=== PATIENT | male | born 1985 | race Caucasian/White ===

== ENCOUNTER 2017-02-03 13:53 | Emergency (ER) | payer SELFPAY ==
[2017-02-03 14:31] LABS: APPEARANCE HAZY (CLEAR); BACTERIA FEW /hpf (NONE SEEN); BILIRUBIN NEGATIVE (NEGATIVE); COLOR DK YELLOW (YELLOW); EPITHELIAL CELLS 0-5 /hpf (0-5); GLUCOSE NEGATIVE (NEGATIVE); KETONE NEGATIVE (NEGATIVE); LEUKOCYTE ESTERASE TRACE (NEGATIVE); MUCUS <1+ /lpf (NONE SEEN); NITRITE NEGATIVE (NEGATIVE); PROTEIN NEGATIVE (NEGATIVE); SPECIFIC GRAVITY 1.015 (1.005-1.020); WHITE CELLS - URINE OCC /hpf (0-5)
[2017-02-03 14:31] LABS: BASOPHILS 0.4 % (0-2); EOSINOPHILS 1.5 % (0-7); HEMATOCRIT 48.9 % (42.0-54.0); HEMOGLOBIN 17.9 g/dL (13.5-17.5); IMMATURE GRANULOCYTES 0.1 % (0-5); LYMPHOCYTES 22.4 % (15-50); MCH 32.7 pg (26.0-34.0); MCHC 36.6 g/dL (31.0-37.0); MCV 89.4 fL (80.0-100.0); MEAN PLATELET VOLUME 10.9 fL (7.4-10.4); MONOCYTES 6.1 % (2-11); NEUTROPHILS 69.5 % (40-80); PLATELET COUNT 281 10x3/uL (130-400); RBC 5.47 10x6/uL (4.20-6.10); RDW 12.4 % (11.5-14.5); WBC 12.1 10x3/uL (4.8-10.8)
[2017-02-03 14:38] LABS: ALBUMIN 4.3 g/dL (3.4-5.0); ALKALINE PHOSPHATASE 66 U/L (46-116); ALT (SGPT) 28 U/L (10-68); AMYLASE - SERUM 52 U/L (25-115); BILIRUBIN - TOTAL 2.31 mg/dL (0.2-1.3); CALC OSMOLALITY 272 mosm/kg (275-300); CALCIUM 10.1 mg/dL (8.5-10.1); CARBON DIOXIDE 22.7 mmol/L (21.0-32.0); CHLORIDE - SERUM 103 mmol/L (98-107); CREATININE - SERUM 1.2 mg/dL (0.6-1.3); GLUCOSE 103 mg/dL (74-106); LIPASE 96 U/L (73-393); POTASSIUM - SERUM 3.5 mmol/L (3.5-5.1); PROTEIN - SERUM 7.9 g/dL (6.4-8.2); SODIUM 136 mmol/L (136-145); UREA NITROGEN 16 mg/dL (7-18); eGFR NON AFRICAN AMERICAN 75 mL/min (90-120)
== END 2017-02-03 16:42 | disposition home or self-care (01) ==
LOC: D.ER 13:53
PROVIDERS: Emergency Medicine
DX: R10.32 Left lower quadrant pain (principal)

== ENCOUNTER 2018-10-19 13:11 | Emergency (ER) | payer OTHER ==
[2018-10-19 13:20] VITALS: BMI 26.6
[2018-10-19] MEDS ORDERED: KLONOPIN1 MG PO (15:26)
[2018-10-19 15:51] VITALS: BP 126/52
== END 2018-10-19 15:52 | disposition home or self-care (01) ==
LOC: D.ER 13:11
DX: F41.1 Generalized anxiety disorder (principal); F41.0 Panic disorder [episodic paroxysmal anxiety]

== ENCOUNTER 2018-11-19 19:33 | Emergency (ER) | payer OTHER ==
[~2018-11-19] VITALS: Ht 175.3 cm; Wt 80.0 kg
[~2018-11-19 19:33] MED LIST: KLONOPIN1 MG PO
[2018-11-19 19:44] VITALS: Ht 175.3 cm; Wt 80.0 kg
[2018-11-19] MEDS ORDERED: HYDROCODON-ACE1 EA10 PO (21:35)
[2018-11-19 21:53] VITALS: BP 103/71
== END 2018-11-19 21:54 | disposition home or self-care (01) ==
LOC: D.ER 19:33
DX: S61.512A Laceration without foreign body of left wrist, initial encounter (principal); W26.8XXA Contact with other sharp object(s), not elsewhere classified, initial encounter; Y93.89 Activity, other specified; Y92.89 Other specified places as the place of occurrence of the external cause

== ENCOUNTER 2018-11-25 16:14 | Emergency (ER) | payer OTHER ==
[~2018-11-25] VITALS: Ht 175.3 cm; Wt 81.8 kg
[~2018-11-25 16:14] MED LIST changes: +HYDROCODON-ACE1 EA10 PO
[2018-11-25 16:35] VITALS: Ht 175.3 cm; Wt 81.8 kg
[2018-11-25 17:05] LABS: APPEARANCE CLEAR (CLEAR); COLOR YELLOW (YELLOW)
[2018-11-25 17:06] LABS: BILIRUBIN NEGATIVE (NEGATIVE); GLUCOSE NEGATIVE (NEGATIVE); KETONE NEGATIVE (NEGATIVE); NITRITE NEGATIVE (NEGATIVE); PROTEIN NEGATIVE (NEGATIVE); SPECIFIC GRAVITY 1.005 (1.005-1.020); UROBILINOGEN NORMAL (NORMAL)
[2018-11-25] MEDS ORDERED: CIPRO500 MG PO (18:59)
[2018-11-25] MEDS ORDERED: VOLTAREN75 MG PO (18:59)
[2018-11-25 19:24] VITALS: BP 114/65
== END 2018-11-25 16:24 | disposition home or self-care (01) ==
LOC: D.ER 16:14
PROVIDERS: Family Medicine
DX: N50.3 Cyst of epididymis (principal); R30.0 Dysuria

== ENCOUNTER 2018-11-30 09:50 | Emergency (ER) | payer OTHER ==
[~2018-11-30] VITALS: Ht 175.3 cm; Wt 80.0 kg
[~2018-11-30 09:50] MED LIST changes: +CIPRO500 MG PO; +VOLTAREN75 MG PO
[2018-11-30 09:53] VITALS: BP 136/78; Ht 175.3 cm; Wt 80.0 kg
[2018-11-30] MEDS ORDERED: MUPIROCIN22 GM TOPICAL (10:21)
== END 2018-11-30 11:00 | disposition home or self-care (01) ==
LOC: D.ER 09:50
DX: S61.512D Laceration without foreign body of left wrist, subsequent encounter (principal); X58.XXXD Exposure to other specified factors, subsequent encounter; Z48.02 Encounter for removal of sutures

== ENCOUNTER 2018-12-09 16:52 | Emergency (ER) | payer OTHER ==
[~2018-12-09] VITALS: Ht 175.3 cm; Wt 77.3 kg
[~2018-12-09 16:52] MED LIST changes: +MUPIROCIN22 GM TOPICAL
[2018-12-09 17:52] VITALS: BP 120/73; Ht 175.3 cm; Wt 77.3 kg
[2018-12-09] MEDS ORDERED: VIBRAMYCIN 100100 MG PO (19:54)
[2018-12-09] MEDS ORDERED: VOLTAREN75 MG PO (19:54)
== END 2018-12-09 20:20 | disposition home or self-care (01) ==
LOC: D.ER 16:52
DX: L03.114 Cellulitis of left upper limb (principal)